=== PATIENT | male | born 1990 | race Caucasian/White ===

== ENCOUNTER 2017-01-11 11:11 | Emergency (ER) | payer SELFPAY ==
[~2017-01-11] VITALS: Ht 167.6 cm; Wt 75.0 kg
[~2017-01-11 11:11] MED LIST: BACTRIM DS1 TAB PO; DEPAKOTE250 MG OR; LORTAB5 PO; NO MEDS; TRAZODONE100 MG OR
[2017-01-11] MEDS ORDERED: NAPROSYN500 MG PO (12:41)
[2017-01-11 12:44] VITALS: BP 142/85
== END 2017-01-11 12:51 | disposition home or self-care (01) | DRG 605 ==
LOC: ED 11:11
DX: S40.012A Contusion of left shoulder, initial encounter (principal); F17.210 Nicotine dependence, cigarettes, uncomplicated; S50.12XA Contusion of left forearm, initial encounter; S00.83XA Contusion of other part of head, initial encounter; S60.416A Abrasion of right little finger, initial encounter; Y00.XXXA Assault by blunt object, initial encounter; Y92.003 Bedroom of unspecified non-institutional (private) residence as the place of occurrence of the external cause

== ENCOUNTER 2022-03-02 17:41 | Observation (INO) | payer SELFPAY ==
[~2022-03-02] VITALS: Ht 167.6 cm; Wt 150.0 kg
[2022-03-02] VITALS (13 sets, daily range): BP systolic 72–137; BP diastolic 53–84
[~2022-03-02 17:41] MED LIST changes: +NAPROSYN500 MG PO
[2022-03-02 18:31] LABS: HEMATOCRIT 45.6 % (39.0-50.0); HEMOGLOBIN 15.4 g/dl (14.0-18.0); IMMATURE GRANULOCYTES 0.3 % (0.0-5.0); MEAN CELL VOLUME 90.3 fL CALC (80.0-100.0); MEAN CORPUSCULAR HGB 30.5 pG CALC (26.0-32.0); MEAN CORPUSCULAR HGB CONC 33.8 g/dL CAL (32.0-36.0); NEUT# 11.89 thou/uL (1.82-7.42); RED BLOOD COUNT 5.05 mill/uL (4.70-6.10); RED CELL DISTRI WIDTH 11.8 % (11.5-15.5)
[2022-03-02 18:45] LABS: ALBUMIN 4.4 g/dL (3.2-5.0); POTASSIUM 3.7 mmol/l (3.5-5.1); TOTAL PROTEIN 7.6 g/dL (6.3-8.2)
[2022-03-02 18:46] LABS: BILIRUBIN, TOTAL 2.5 mg/dL (0.0-1.4); CREATININE 1.8 mg/dL (0.7-1.3)
[2022-03-03 00:19] VITALS: BP 108/69
[2022-03-03 00:44] LABS: URINE BLOOD DIPSTICK MODERATE (NEGATIVE); URINE COLOR YELLOW; URINE GLUCOSE - DIPSTICK NEGATIVE (NEGATIVE); URINE KETONE 15 mg/dL (NEGATIVE); URINE PH 5.5 (4.5-8.0); URINE PROTEIN - DIPSTICK NEGATIVE (NEG-TRACE); URINE SPECIFIC GRAVITY >=1.030
[2022-03-03 01:00] LABS: URINE BILIRUBIN - DIPSTICK SMALL (NEGATIVE); URINE NITRITE - DIPSTICK NEGATIVE (Negative)
[2022-03-03 01:06] LABS: URINE LEUK ESTERASE NEGATIVE (NEGATIVE)
[2022-03-03 01:07] LABS: URINE BACTERIA FEW hpf; URINE EPITHELIAL CELLS MODERATE EPI/hpf (0-FEW); URINE MUCUS FEW hpf (NONE-FEW)
[2022-03-03 01:08] LABS: URINE COARSE GRANULAR CAST FEW lpf; URINE FINE GRAN CAST FEW lpf; URINE HYALINE CAST FEW lpf (NONE-RARE)
== END 2022-03-03 01:35 | disposition left against medical advice (07) | DRG 558 ==
LOC: ED 17:41 → ED-I 18:35 → ED 19:09 → MS2 19:10
PROVIDERS: Family Medicine; ADMIT Hospitalist; ATTEND Hospitalist
DX: M62.82 Rhabdomyolysis (principal); F17.200 Nicotine dependence, unspecified, uncomplicated; L55.0 Sunburn of first degree; X32.XXXA Exposure to sunlight, initial encounter; Y93.55 Activity, bike riding; Z59.00 Homelessness unspecified; Z20.822 Contact with and (suspected) exposure to COVID-19
CPT/HCPCS: G0378

== ENCOUNTER 2022-07-23 11:54 | Emergency (ER) | payer SELFPAY ==
[2022-07-23] VITALS (11 sets, daily range): BP systolic 109–161; BP diastolic 72–104
[~2022-07-23] VITALS: Ht 167.6 cm; Wt 72.0 kg
[2022-07-23] MEDS ORDERED: PENICILLN VK500 MG PO (13:54)
[2022-07-23] MEDS ORDERED: CORTISPORIN OTI10 M2 AU (13:54)
[2022-07-23] MEDS ORDERED: ULTRAM50 M1 PO (13:54)
[2022-07-23] MEDS ORDERED: BACTRIM DS1 TAB PO (13:54)
[2022-07-24 14:15] VITALS: BP 145/88
== END 2022-07-23 14:15 | disposition home or self-care (01) | DRG 603 ==
LOC: ED 11:54
DX: L02.211 Cutaneous abscess of abdominal wall (principal); Z16.11 Resistance to penicillins; B95.7 Other staphylococcus as the cause of diseases classified elsewhere; K04.7 Periapical abscess without sinus; H60.92 Unspecified otitis externa, left ear